=== PATIENT | male | born 1975 | race Caucasian/White ===

== ENCOUNTER 2018-06-21 08:25 | Emergency (ER) | payer BC ==
[2018-06-21 08:36] VITALS: BP 118/76
--- NOTE | 2018-06-21 08:45 | UC ---
Throat Pain/Nasal Luis Alfredo HPI - HPI Summary HPI Summary: Patient presents to urgent care reporting a sore throat for 10-14 days. Patient states he's got a mild frontal headache and fatigue. No nausea vomiting. Patient states his appetite and okay. Patient without a documented fever. Patient states his and daughter both have strep throat and he wanted it tested. Patient denies fevers or chills. No rash. Patient has not taken any analgesia. No drooling. Patient's medications reviewed this visit. - History of Current Complaint Chief Complaint: UCGeneralIllness Stated Complaint: SORE THROAT Time Seen by Provider: 06/21/18 08:33 Hx Obtained From: Patient Severity: Mild Pain Intensity: 1 Pain Scale Used: 0-10 Numeric - Allergies/Home Medications Allergies/Adverse Reactions: Allergies Allergy/AdvReac Type Severity Reaction Status Date / Time No Known Allergies Allergy Verified 06/21/18 08:36 PMH/Surg Hx/FS Hx/Imm Hx Previously Healthy: Yes - Surgical History Surgical History: Yes Surgery Procedure, Year, and Place: RT WRIST SURGERY. LT THUMB SURGERY - Family History Known Family History: Positive: Other - and daughter with strep, Non- Contributory - Social History Occupation: Employed Full-time Lives: With Family Alcohol Use: Weekly Substance Use Type: None Smoking Status (MU): Former Smoker Type: Cigarettes Review of Systems All Other Systems Reviewed And Are Negative: Yes Constitutional: Positive: Fatigue ENT: Positive: Sore Throat Neurological: Positive: Headache Physical Exam - Summary Physical Exam Summary: Vital Signs Reviewed: Yes A+Ox3, no distress, speaking full, easy sentences Eyes: Conjunctiva Clear, QUEENIE. EOM intact and full ENT: Hearing grossly normal TM x 2 clear, mmoist, uvula midline, + exudate right tonsil, + diffuse erythema oropharynx Neck: Positive: Supple Respiratory: Positive: No respiratory distress, No accessory muscle use + CTA throughout no w/r Cardiovascular: RRR nl s1, s2 no m/r CBT <2 sec abd soft + BS nt/nd no guarding, no distension Musculoskeletal Exam: PATEL x 4 without difficulty Strength Intact, ROM Intact Neurological: Positive: Alert, + sensation throughout Psychological: Positive: Normal Response To Family Skin: Positive: no rash, no ecchymosis Triage Information Reviewed: Yes Vital Signs: Initial Vital Signs Temp 97.7 F 06/21/18 08:32 Pulse 70 06/21/18 08:32 Resp 18 06/21/18 08:32 BP 118/76 06/21/18 08:32 Pulse Ox 100 06/21/18 08:32 Throat Pain/Nasal Course/Dx - Course Course Of Treatment: Patient presents to urgent care with 10-14 days of sore throat. Patient reports painful swallowing. No drooling. No fever. Patient with mild frontal headache. Patient is not taken any [id number] medications. To family members with positive strep throat. On exam vital signs are stable. Patient does have infections right tonsil as well as diffuse erythema of the oropharynx. Uvula midline. No clinical concern for abscess Will Rx AMox reviewed secretion precaution with pt return precaution agreement and comfort with plan - Differential Dx/Diagnosis Provider Diagnosis: Strep pharyngitis Discharge - Sign-Out/Discharge Documenting (check all that apply): Patient Departure All imaging exams completed and their final reports reviewed: No Studies - Discharge Plan Condition: Stable Disposition: HOME Prescriptions: Amoxicillin PO (*) [Amoxicillin 500 MG CAP*] 500 mg PO Q12H #20 cap Patient Education Materials: Strep Throat (ED) Referrals: [facility] [place] [place] [facility] [Outside] No Primary Care Phys,NOPCP [Primary Care Provider] - Additional Instructions: - Okay to alternate ibuprofen (Advil, Motrin) and Tylenol every 3 hours for pain. Take with food. Do NOT take for more than 4-5 days - Okay to gargle and spit warm salt water every 4 hours as needed for pain - Stay well hydrated - frequent sips of cold fluids will be soothing to your throat (popsicles, jello, ice cream, ice water). Avoid excess caffeine until your symptoms have resolved. -Throat infections are spread by oral secretions - do not share eating or drinking utensils until you symptoms are resolved. Clean items that may get your secretions such as cell phones, ipads, computer mouse, television remotes. Once you have been on antibiotics for 2 days, change your toothbrush and your pillowcase. - Humidify the air in the room where you sleep - boil water, run a hot steam shower, vaporizer, cups of water by heat register - Contact your doctor to arrange a follow-up appointment as needed - Billing Disposition and Condition Condition: STABLE Disposition: Home
== END 2018-06-21 09:17 | disposition home or self-care (01) ==
LOC: UCEAST 08:25
DX: J02.0 Streptococcal pharyngitis (principal); R53.83 Other fatigue; R51 Headache; Z87.891 Personal history of nicotine dependence
CPT/HCPCS: 87651; 99202; G0463

== ENCOUNTER 2018-11-30 15:10 | Emergency (ER) | payer BC ==
[2018-11-30 16:06] VITALS: BP 112/72
--- NOTE | 2018-11-30 16:45 | UC ---
Respiratory Complaint HPI - HPI Summary HPI Summary: The patient is a 43-year-old male that has been ill for 4-5 days. His symptoms initially started with very mild sore throat and mild cough. He had some malaise. For the past 48 hours she has had high fever chills and myalgias. He also has had a bad headache. He has had nausea but no vomiting. He denies any abdominal pain or diarrhea. He has no UTI symptoms. He denies any rash. He denies any known tick bite. - History of Current Complaint Chief Complaint: UCGeneralIllness Stated Complaint: FEVER AND FATIGUE AND NO APPETITE Time Seen by Provider: 11/30/18 16:28 Hx Obtained From: Patient Onset/Duration: Gradual Onset Timing: Constant Severity Initially: Mild Severity Currently: Severe Pain Intensity: 8 Pain Scale Used: 0-10 Numeric Character: Cough: Nonproductive - and mild Alleviating Factors: Nothing Associated Signs And Symptoms: Positive: Fever, Chills. Negative: Dyspnea, Pleuritic Chest Pain, Wheezing, Hemoptysis, Dizziness, Calf Pain, Calf Swelling , Edema, URI, Nasal Congestion, Hoarseness, Sinus Discomfort - Allergies/Home Medications Allergies/Adverse Reactions: Allergies Allergy/AdvReac Type Severity Reaction Status Date / Time No Known Allergies Allergy Verified 11/30/18 16:06 Home Medications: Home Medications Ibuprofen [Advil] 400 mg PO ONCE PRN 11/30/18 [History Confirmed 11/30/18] PMH/Surg Hx/FS Hx/Imm Hx Previously Healthy: Yes - Surgical History Surgical History: Yes Surgery Procedure, Year, and Place: RT WRIST SURGERY. LT THUMB SURGERY - Family History Known Family History: Positive: Non-Contributory - Social History Alcohol Use: None Substance Use Type: None Smoking Status (MU): Former Smoker Type: Cigarettes When Did the Patient Quit Smoking/Using Tobacco: a few years ago Review of Systems All Other Systems Reviewed And Are Negative: Yes Constitutional: Positive: Fever, Chills, Fatigue Skin: Positive: Negative Eyes: Positive: Negative ENT: Positive: Sore Throat - mild Respiratory: Positive: Cough - mild Cardiovascular: Positive: Negative Gastrointestinal: Positive: Negative Genitourinary: Positive: Negative Motor: Positive: Negative Neurovascular: Positive: Negative Musculoskeletal: Positive: Myalgia Neurological: Positive: Headache Psychological: Positive: Negative Physical Exam Triage Information Reviewed: Yes Appearance: Well-Appearing, No Pain Distress, Well-Nourished Vital Signs: Initial Vital Signs Temp 100 F 11/30/18 16:02 Pulse 89 11/30/18 16:02 Resp 18 11/30/18 16:02 BP 112/72 11/30/18 16:02 Pulse Ox 97 11/30/18 16:02 Vital Signs Reviewed: Yes Eyes: Positive: Conjunctiva Clear ENT: Positive: Hearing grossly normal, Pharynx normal, Uvula midline. Negative : Nasal congestion, Nasal drainage, Tonsillar swelling, Tonsillar exudate, Muffled voice, Hoarse voice, Dental tenderness, Sinus tenderness Dental Exam: Normal Neck: Positive: Supple, Nontender, No Lymphadenopathy Respiratory: Positive: Normal breath sounds, No respiratory distress, No accessory muscle use, Crackles - right base Cardiovascular: Positive: RRR, No Murmur Musculoskeletal: Positive: ROM Intact, No Edema Neurological: Positive: Alert Psychological Exam: Normal Skin Exam: Normal Diagnostics - Radiology No standard instances Radiology Interpretation Completed By: Radiologist Summary of Radiographic Findings: CHEST X-RAY FINDINGS ARE MOST CONSISTENT WITH PNEUMONIA INVOLVING THE SUPERIOR SEGMENT OF THE RIGHT LOWER LOBE. I RECOMMEND A FOLLOW-UP CHEST X-RAY AFTER AN APPROPRIATE COURSE OF THERAPY TO ASCERTAIN RESOLUTION. Respiratory Course/Dx - Differential Dx/Diagnosis Provider Diagnosis: Right lower lobe pneumonia Discharge ED - Sign-Out/Discharge Documenting (check all that apply): Patient Departure All imaging exams completed and their final reports reviewed: Yes - Discharge Plan Condition: Stable Disposition: HOME Prescriptions: Amoxicillin/Clavulanate TAB* [Augmentin TAB 875*] 875 mg PO BID #14 tab Patient Education Materials: Pneumonia (ED) Referrals: [facility] [Outside] - 2 Weeks Additional Instructions: rest fluids tylenol recheck for worsening symptoms recheck if still febrile after being on the antibiotic for 2-3 days call [facility] for follow up appt the radiologist has suggested a repeat XR once you are better - Billing Disposition and Condition Condition: STABLE Disposition: Home
[2018-11-30 16:49] LABS: Influenza A Molecular NEGATIVE (Negative); Influenza B Molecular NEGATIVE (Negative)
[2018-11-30] MEDS ORDERED: Amoxicillin/Clavulanate TAB* 875 MG PO ONE (17:17)
== END 2018-11-30 17:51 | disposition home or self-care (01) ==
LOC: UCEAST 15:10
DX: J18.1 Lobar pneumonia, unspecified organism (principal); J02.9 Acute pharyngitis, unspecified; M79.10 Myalgia, unspecified site; R51 Headache; R11.0 Nausea; R53.81 Other malaise; Z87.891 Personal history of nicotine dependence
CPT/HCPCS: 71046; 87651; 99212; A9270-GY; G0463